=== PATIENT | female | born 1985 | race Caucasian/White ===

== ENCOUNTER 2016-08-27 19:42 | Emergency (ER) | payer SELFPAY ==
[~2016-08-27] VITALS: Ht 177.8 cm; Wt 88.0 kg
[~2016-08-27 19:42] MED LIST: DOXY100T PO
[2016-08-27 19:44] VITALS: BP 161/94; PULSE 92; RESP 14; TEMP 99.1; O2SAT 99
[2016-08-27] MEDS ORDERED: CLIN1CAP6 PO (21:59)
[2016-08-27] MEDS ORDERED: CLINDAMYCIN 150 MG CAP PO ONE (22:00)
--- NOTE | 2016-08-27 22:02 | PD ---
HPI Chief Complaint: Bite or Sting Time Seen by Provider: 21:54 Travel History International Travel<30 days: No Contact w/Intl Traveler<30days: No Traveled to known affect area: No History of Present Illness HPI This is a 31-year-old female who presents for evaluation of an area of skin redness, tenderness on her right breast. Symptoms started yesterday. It is an aching pain that is worse with palpation. She denies any drainage, fevers or chills. She hypothesizes that she was bitten by a spider although she does not recall any bug bites or puncture wounds. She has no other complaints at this time. PFSH Past Medical History Asthma: Yes Cancer: No Cardiovascular Problems: No COPD: No Diabetes: No Diminished Hearing: No Endocrine: No GERD: No Genitourinary: No Hiatal Hernia: No Hypertension: Yes (WHEN ) Immune Disorder: No Kidney Stones: Yes Musculoskeletal: No Neurologic: No Psychiatric: No Reproductive: No Respiratory: Yes (ASTHMA) Renal Failure: No Sleep Apnea: No Ulcer: No : 4 Para: 4 Tubal Ligation: Yes Past Surgical History Abdominal Surgery: No Cardiac Surgery: No Section: Yes (X 4) Ear Surgery: No Endocrine Surgery: No Eye Surgery: No Genitourinary Surgery: No Gynecologic Surgery: Yes (C SECTIONS X4) Oral Surgery: No Thoracic Surgery: No Social History Alcohol Use: Yes (OCCASSIONAL) Tobacco Use: Yes (1 PPD) Substance Use: No Allergies-Medications (Allergen,Severity, Reaction): Coded Allergies: Honey Bee (Verified Allergy, Severe, SWELLING, NEEDS EPI-PEN, 08/27/16) Chocolate (Verified Allergy, Mild, Rash, 08/27/16) Milk (Verified Allergy, Mild, Rash, 08/27/16) [place] (Verified Allergy, Mild, Rash, 08/27/16) Penicillin (Verified Allergy, Unknown, Hives, 08/27/16) *MDRO Multi-Drug Resistant Organism (Verified Adverse Reaction, Unknown, ) 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 On the lateral aspect of the right breast there is a 3-4 cm circular area of mild erythema. There are some central excoriation and slight induration. No fluctuance or drainage. CARDIOVASCULAR: Regular rate and rhythm. No murmur appreciated. RESPIRATORY: No accessory muscle use. Clear to auscultation. Breath sounds equal bilaterally. Extremities: There is no axillary lymphadenopathy. Data Data Last Documented VS Vital Signs Date Time Temp Pulse Resp B/P Pulse Ox O2 Delivery O2 Flow Rate FiO2 08/27/16 19:44 99.1 92 14 161/94 99 Room Air Orders Clindamycin (Cleocin) (08/27/16 22:00) [facility] Medical Decision Making Medical Screen Exam Complete: Yes Emergency Medical Condition: Yes Medical Record Reviewed: Yes Differential Diagnosis Cellulitis, mastitis, abscess Narrative Course The patient appears to have mild cellulitis to the right breast with central excoriation, likely secondary to a bug bite or puncture wound. There is no evidence of abscess or malignancy. Plan is to treat the patient as an outpatient with oral antibiotics. Discussed signs and symptoms that would warrant return to the emergency room. She is stable for discharge. Diagnosis Primary Impression: Cellulitis of right breast Additional Instructions: Antibiotic as prescribed. Warm compresses several times a day 10 minutes at a time to the affected area as discussed. Return for evidence of worsening infection such as increasing redness, fevers, increasing pain. Med/Other Pt SpecificInfo: Prescription(s) given Scripts Clindamycin 300 Mg Uvc232 Mg PO TID 10 Days Ref 0 Prov:Zully Fink 08/27/16 Disposition: 01 DISCHARGE HOME Condition: Stable Misbah Reis Aug 27, 2016 22:02
== END 2016-08-27 23:36 | disposition home or self-care (01) ==
LOC: NEPK 19:42
DX: N61.0 Mastitis without abscess (principal)
CPT/HCPCS: 99282